=== PATIENT | male | born 1995 | race Caucasian/White ===

== ENCOUNTER 2019-06-29 13:37 | Emergency (ER) | payer OTHER ==
[2019-06-29 13:46] VITALS: BP 147/80; PULSE 96; TEMP 98; BMI 24.2
--- NOTE | 2019-06-29 14:55 | PDOC ---
History of Present Illness - General Chief Complaint: Psychiatric Stated Complaint: Psychiatric History Source: Patient Exam Limitations: No Limitations - History of Present Illness Initial Comments: 06/29/19 14:55 Patient is a 24 year old male with a past psychiatric history of Major depressive disorder with bipolar features and a past medical history of pre- diabetes who presented to the emergency room for suicidal ideation. Patient states that today he was only having thoughts about hurting himself without any actual intent or plan. Patient states that he lives in a prison where some of the other residents of the prison were bullying him and calling him names which triggered the onset of this event. Patient states that he has had suicidal thoughts in the past with one prior attempt of hurting himself by not taking his psychiatric medications. Today patient endorses suicidal thoughts, low levels of energy, decreased appetite, unable to concentrate, and change in sleep patterns. Patient states that he is currently feeling better than he was earlier and is no longer feeling suicidal. Patient states that he will be working with his therapist to encourage healthier coping mechanisms to prevent instances like this again and will reach out to the staff at his prison if he feels the same way again. Patient is currently laying in bed, AAOX3, grooming appears poor, patient is able to make proper eye contact, speaks in a soft tone and a regular rate and volume, and does not appear distracted or responding to internal or external stimuli. Patient states that he is taking his Effexor and Trilafon regularly and has not had any recent medication changes. Past History - Past Medical History Allergies/Adverse Reactions: Allergies Allergy/AdvReac Type Severity Reaction Status Date / Time clindamycin Allergy Verified 06/29/19 13:46 COPD: No Psychiatric Problems: Yes (BIPOLAR, DEPRESSION) - Psycho Social/Smoking Cessation Hx Smoking History: Current every day smoker Number of Cigarettes Smoked Daily: 20 Information on smoking cessation initiated: No Hx Alcohol Use: No Drug/Substance Use Hx: No Review of Systems - Review of Systems Constitutional: No: Chills, Fever Respiratory: No: Shortness of Breath Cardiac (ROS): No: Chest Pain ABD/GI: No: Constipated, Diarrhea, Nausea, Vomiting : No: Burning, Dysuria, Frequency, Flank Pain Musculoskeletal: No: Back Pain Neurological: No: Headache Psychiatric: Yes: Depression, Emotional Problems *Physical Exam - Vital Signs Last Vital Signs Temp Pulse Resp BP Pulse Ox 98 F 96 H 18 147/80 98 06/29/19 13:42 06/29/19 13:42 06/29/19 13:42 06/29/19 13:42 06/29/19 13:42 - Physical Exam General Appearance: Yes: Nourished, Appropriately Dressed. No: Apparent Distress HEENT: positive: EOMI, TSERING Neck: positive: Supple. negative: Carotid bruit Respiratory/Chest: positive: Lungs Clear, Normal Breath Sounds. negative: Respiratory Distress, Accessory Muscle Use, Crackles, Rales, Rhonchi, Stridor, Wheezing Cardiovascular: positive: Regular Rhythm, Regular Rate, S1, S2. negative: Edema , JVD, Murmur Vascular Pulses: Dorsalis-Pedis (R): 4+, Doralis-Pedis (L): 4+ Gastrointestinal/Abdominal: positive: Flat, Soft. negative: Pulsatile Mass, Protuberent, Distended, Guarding, Rebound, Tenderness Musculoskeletal: negative: CVA Tenderness Extremity: positive: Normal Capillary Refill, Normal Inspection, Normal Range of Motion Integumentary: positive: Normal Color, Dry, Warm Neurologic: positive: cabin man II-XII NML intact, Fully Oriented, Alert, Normal Mood/ Affect, Normal Response, Motor Strength 5/5 Medical Decision Making - Medical Decision Making Patient is a 24 year old male with a past psychiatric history of Major depressive disorder with bipolar features and a past medical history of pre- diabetes who presented to the emergency room for suicidal ideation. Patient states that today he was only having thoughts about hurting himself without any actual intent or plan. Patient states that he lives in a prison where some of the other residents of the prison were bullying him and calling him names which triggered the onset of this event. Patient states that he has had suicidal thoughts in the past with one prior attempt of hurting himself by not taking his psychiatric medications. Today patient endorses suicidal thoughts, low levels of energy, decreased appetite, unable to concentrate, and change in sleep patterns. Patient states that he is currently feeling better than he was earlier and is no longer feeling suicidal. Patient states that he will be working with his therapist to encourage healthier coping mechanisms to prevent instances like this again and will reach out to the staff at his prison if he feels the same way again. Patient is currently laying in bed, AAOX3, grooming appears poor, patient is able to make proper eye contact, speaks in a soft tone and a regular rate and volume, and does not appear distracted or responding to internal or external stimuli. Patient states that he is taking his Effexor and Trilafon regularly and has not had any recent medication changes. 06/29/19 14:27 [facility], prison. [phone] Victor Hugo Taborin staff member providing information Dr. Abebe Psychotherapyst [phone] saw pt 06/23 Dr. De León pt Psychiatrist [phone] 06/29/19 14:58 Dr. Abebe states email sent by pt this am "going to kill myself" "im going to comit suicide, I dont want to live on this earth anymore, I want to get myself to a better place, i am a nobody. I want to show [facility] what happens when they mess with my emotion" 06/29/19 15:21 Dr. Kan spoke with [facility] ED who accept pt for transfer due to having no Psych to evaluate Pt DC and EMT transport pt Discharge - Discharge Information Problems reviewed: Yes Clinical Impression/Diagnosis: Psychiatric care Disposition: TRANSFER ACUTE CARE/OTHER HOSP - Follow up/Referral - Patient Discharge Instructions - Post Discharge Activity
--- NOTE | 2019-06-29 15:21 | PDOC ---
Documentation entered by Arvind Cruz SCRIBE, acting as scribe for Gustavo Kan MD. Gustavo Kan MD: This documentation has been prepared by the Nancy valencia Xhesika, SCRIBE, under my direction and personally reviewed by me in its entirety. I confirm that the documentation accurately reflects all work, treatment, procedures, and medical decision making performed by me. Attending Attestation - Resident Resident Name: Fer Parada - ED Attending Attestation I have performed the following: I have examined & evaluated the patient, The case was reviewed & discussed with the resident, I agree w/resident's findings & plan, Exceptions are as noted - HPI HPI: 06/29/19 15:17 The patient is a 24 y/o male with a PMH of psychiatric history of Major depressive disorder with bipolar features who presents to the ED for suicidal ideation. Pt states he has only thought about killing himself but has no plans and has never tried to hurt himself. Pt states his suicidal ideation was triggered by members at his jail who were calling him names. Pt states the staff members at his jail are neglectful about his situation. Pt states he was admitted for suicidal ideation back in at [facility]. The patient denies chest pain, shortness of breath, and dizziness. Denies fever , chills, cough, nausea, vomiting, and constipation. Allergy: Clindamycin Social: Denies alcohol or drug use. - Physicial Exam PE: 06/29/19 15:19 Vitals: Triage Vital signs reviewed General Appearance: no acute distress, well nourished well developed, Neck: Supple;No Nuchal rigidity Chest Wall: Nontender Cardiac: Regular rate and rhythm, no murmurs, no rubs, no gallops, Lungs: Clear to auscultation bilateral, good air movement bilaterally Extremities: Full range of motion to all extremities, no cyanosis, clubbing, or edema Skin: Warm and dry, no rashes or lesions, no petechiae Neuro: AOX3; Cranial Nerves 2-12 grossly c intact, Strength intact to all extremities, Sensation intact to all extremities Psych: Endorses suicidal ideation but no active plan no hallucinations - Medical Decision Making 06/29/19 15:21 Suicidal ideation no active plan no previous suicide attempts positive previous psych hospitalizations coming from jail sent to ED for psych evaluation Unfortunately at this time we do not have psychiatry crime prevention worker patient has been followed at [facility] in the past. Case accepted by Dr. Ball at [facility]. Medically stable for transfer for psychiatric evaluation We will transfer to [facility] for psych evaluation and further management.
--- NOTE | 2019-06-30 09:41 | EKG ---
Test Reason : Blood Pressure : / mmHG Vent. Rate : 080 BPM Atrial Rate : 080 BPM P-R Int : 154 ms QRS Dur : 118 ms QT Int : 378 ms P-R-T Axes : 022 071 037 degrees QTc Int : 435 ms NORMAL SINUS RHYTHM NON-SPECIFIC INTRA-VENTRICULAR CONDUCTION DELAY BORDERLINE ECG NO PREVIOUS ECGS AVAILABLE Confirmed by Arthur Figueroa MD ([id number]) on 06/30/2019 9:40:43 AM Referred By: Confirmed By:Arthur Figueroa MD
== END 2019-06-29 18:58 | disposition short-term general hospital (02) ==
LOC: JER 13:37
DX: F33.8 Other recurrent depressive disorders (principal); R45.851 Suicidal ideations; F17.210 Nicotine dependence, cigarettes, uncomplicated; Z88.1 Allergy status to other antibiotic agents
CPT/HCPCS: 93005; 93010; 99285-25

== ENCOUNTER 2021-03-29 23:00 | Emergency (ER) | payer OTHER ==
[2021-03-29 23:06] VITALS: BMI 22.6
[2021-03-30] MEDS ORDERED: SODIUM CHLORIDE 0.9% 500 ML INFUS.BAG IV ONE ×2 (00:46→03:05)
[2021-03-30] MEDS ORDERED: ACETAMINOPHEN 1000 MG/100 ML VIAL IVPB ONE (00:47)
[2021-03-30 01:42] LABS: BASO % 0.3 % (0-2.0); EOS % 2.4 % (0-4.5); HEMATOCRIT 44.7 % (35.4-49); HEMOGLOBIN 15.8 GM/dL (11.7-16.9); LYMPH % 36.6 % (8-40); MCH 31.6 pg (25.7-33.7); MCHC 35.4 g/dl (32.0-35.9); MEAN CELL VOLUME 89.3 fl (80-96); MEAN PLT VOLUME 7.4 fl (7.5-11.1); MONO % 7.6 % (3.8-10.2); NEUT % 53.1 % (42.8-82.8); PLATELET COUNT 228 10^3/uL (134-434); RDW 12.3 % (11.9-15.9); WHITE BLOOD COUNT 9.9 K/mm3 (4.0-10.0)
[2021-03-30] MEDS ORDERED: ACETAMINOPHEN INJECTION 100 ML IVPB ONE (01:45)
[2021-03-30 02:31] LABS: VENOUS BASE EXCESS 1.4 mmol/L (-2-2); VENOUS O2 SATURATION 89.6 % (70-80); VENOUS PCO2 48.2 mmHg (38-52); VENOUS PH 7.377 (7.310-7.410)
[2021-03-30 02:54] LABS: ALBUMIN 4.2 g/dl (3.4-5.0); BILIRUBIN,TOTAL 0.4 mg/dL (0.2-1); CALCIUM 9.3 mg/dL (8.5-10.1); CREATININE 0.7 mg/dL (0.55-1.3); TOT PROT 7.3 g/dl (6.4-8.2)
[2021-03-30 03:34] LABS: PH,URINE 6.5 (5.0-8.0); URINE APPEARANCE CLEAR; URINE BILIRUBIN NEGATIVE (NEGATIVE); URINE COLOR YELLOW; URINE GLUCOSE (UA) 3+ (NEGATIVE); URINE KETONE TRACE (NEGATIVE); URINE LEUK ESTERASE NEGATIVE (NEGATIVE); URINE NITRITE NEGATIVE (NEGATIVE); URINE PROTEIN NEGATIVE (NEGATIVE); URINE UROBILINOGEN 0.2 mg/dL (0.2-1.0)
[2021-03-30 08:53] VITALS: BP 127/82; PULSE 86; TEMP 97.5
== END 2021-03-30 09:44 | disposition home or self-care (01) ==
LOC: JER 23:00
PROC: 3E0333Z Introduction of Anti-inflammatory into Peripheral Vein, Percutaneous Approach (ICD-10-PCS; principal; 2021-03-29)
DX: R73.9 Hyperglycemia, unspecified (principal); R10.32 Left lower quadrant pain
CPT/HCPCS: 36415; 74177-TC; 80053; 81003; 82010; 82803; 82962; 83605; 83690; 85025; 87086; 99285-25; J0131

== ENCOUNTER 2024-03-01 10:51 | Emergency (ER) | payer OTHER ==
[2024-03-01 11:01] VITALS: BP 150/87; PULSE 74; RESP 18; TEMP 97.9; BMI 25.7
[2024-03-01] MEDS ORDERED: ACETAMINOPHEN 500 MG TABLET (FP) ONE (11:11)
[2024-03-01] MEDS: ACETAMINOPHEN 500 MG TABLET (FP) PO ONE (11:14)
== END 2024-03-01 12:40 | disposition home or self-care (01) ==
LOC: JERFT 10:51 → JER 10:51 → JERFT 12:40
DX: S99.912A Unspecified injury of left ankle, initial encounter (principal); W10.9XXA Fall (on) (from) unspecified stairs and steps, initial encounter
CPT/HCPCS: 73610-TC-LT-FY; 99283-25